=== PATIENT | male | born 1945 | race Caucasian/White ===

== ENCOUNTER 2017-05-25 14:39 | Emergency (ER) | payer OTHER ==
[2017-05-25 14:49] VITALS: TEMP 98; BMI 26.4
[2017-05-25 15:30] LABS: EOSINOPHIL 0.1 % (0-4.5)
--- NOTE | 2017-05-25 15:38 | PDOC ---
History of Present Illness - General History Source: Patient Exam Limitations: No Limitations - History of Present Illness Initial Comments: 05/25/17 15:39 The patient is a 71-year-old male, with a significant past medical history of HTN and diabetes, who presents to the ED after experiencing a near-syncopal episode at a today. The patient reports that he began to feel lightheaded, diaphoretic, cold, and clammy. He denies experiencing any chest pain or palpitations at the time. The episode lasted approximately 20 minutes and resolved after the pt sat down and drank some water. Pt denies experiencing this in the past. He denies any melena. Pt reports having a cardiac stress test 5 years ago with PCP (Dr. Franks). Pt has no current complaints and feels back at baseline. PCP: Dr. Manish Franks <Makeda Overton - Last Filed: 05/25/17 17:00> - General History Source: Patient Exam Limitations: No Limitations <Heidi Shah - Last Filed: 05/25/17 17:42> - General Chief Complaint: Syncope/Near Syncope Stated Complaint: dizziness,confusion and diaphoresis Time Seen by Provider: 05/25/17 14:45 Past History <Makeda Overton - Last Filed: 05/25/17 17:00> - Past Medical History Cancer: Yes (COLON) COPD: No Diabetes: Yes Disorders: Yes HTN: Yes - Surgical History Abdominal Surgery: Yes (colon resections X 2) - Suicide/Smoking/Psychosocial Hx Smoking History: Former smoker Have you smoked in the past 12 months: No Number of Cigarettes Smoked Daily: 20 Information on smoking cessation initiated: No Hx Alcohol Use: No Drug/Substance Use Hx: No Substance Use Type: None <Heidi Shah - Last Filed: 05/25/17 17:42> - Past Medical History Allergies/Adverse Reactions: Allergies Allergy/AdvReac Type Severity Reaction Status Date / Time No Known Allergies Allergy Verified 05/25/17 14:49 Home Medications: Ambulatory Orders Amlodipine Besylate [Norvasc -] 10 mg PO DAILY 04/21/14 Lisinopril [Prinivil -] 40 mg PO DAILY 04/21/14 Mesalamine [Delzicol] 400 mg PO BID 04/21/14 Metformin HCl [Glucophage -] 500 mg PO BID 04/21/14 Glipizide 5 mg PO DAILY 01/30/15 Triamterene/Hydrochlorothiazid [Triamterene-Hctz 37.5-25 mg Cp] 1 each PO DAILY 01/30/15 Finasteride 5 mg PO DAILY 05/25/17 Tamsulosin HCl [Flomax] 0.4 mg PO DAILY 05/25/17 Review of Systems - Review of Systems Able to Perform ROS?: Yes Comments:: 05/25/17 15:40 GENERAL/CONSTITUTIONAL: No fever or chills. No weakness. (+)Cold, diaphoretic, and clammy. HEAD, EYES, EARS, NOSE AND THROAT: No change in vision. No ear pain or discharge. No sore throat. CARDIOVASCULAR: No chest pain or shortness of breath. RESPIRATORY: No cough, wheezing, or hemoptysis. GASTROINTESTINAL: No nausea, vomiting, diarrhea or constipation. GENITOURINARY: No dysuria, frequency, or change in urination. MUSCULOSKELETAL: No joint or muscle swelling or pain. No neck or back pain. SKIN: No rash NEUROLOGIC:(+)Lightheadedness. No headache, vertigo, loss of consciousness, or change in strength/sensation. ENDOCRINE: No increased thirst. No abnormal weight change. HEMATOLOGIC/LYMPHATIC: No anemia, easy bleeding, or history of blood clots. ALLERGIC/IMMUNOLOGIC: No hives or skin allergy. <Makeda Overton - Last Filed: 05/25/17 17:00> *Physical Exam - Vital Signs Last Vital Signs Temp Pulse Resp BP Pulse Ox 98 F 64 18 138/60 98 05/25/17 14:40 05/25/17 14:40 05/25/17 14:40 05/25/17 14:40 05/25/17 14:40 - Physical Exam Comments: 05/25/17 15:40 GENERAL: Awake, alert, and fully oriented, in no acute distress HEAD: No signs of trauma EYES: PERRLA, EOMI, sclera anicteric, conjunctiva clear ENT: Auricles normal inspection, nares patent, oropharynx clear without exudates. Moist mucosa. NECK: Normal ROM, supple, no lymphadenopathy, JVD, or masses LUNGS: Breath sounds equal, clear to auscultation bilaterally. No wheezes, and no crackles HEART: Regular rate and rhythm, normal S1 and S2, no murmurs, rubs or gallops ABDOMEN: Soft, nontender, normoactive bowel sounds. No guarding, no rebound. No masses EXTREMITIES: Warm, well perfused. Normal range of motion, no edema. No clubbing or cyanosis. No cords, erythema, or tenderness NEUROLOGICAL: Alert and oriented, 5/5 strength SKIN: Warm, Dry, normal turgor, no rashes or lesions noted <Makeda Overton - Last Filed: 05/25/17 17:00> - Vital Signs Last Vital Signs Temp Pulse Resp BP Pulse Ox 98 F 64 18 138/60 98 05/25/17 14:40 05/25/17 14:40 05/25/17 14:40 05/25/17 14:40 05/25/17 14:40 <Heidi Shah - Last Filed: 05/25/17 17:42> Heart Score/ECG Review #1 General ECG Interpretation: Sinus Rhythm, Normal Rate (61), Normal Intervals, No acute ischemic changes <Heidi Shah - Last Filed: 05/25/17 17:42> ED Treatment Course - LABORATORY CBC & Chemistry Diagram: 05/25/17 15:01 05/25/17 15:01 <Makeda Overton - Last Filed: 05/25/17 17:00> - LABORATORY CBC & Chemistry Diagram: 05/25/17 15:01 05/25/17 15:01 - RADIOLOGY Radiology Studies Ordered: Category Date Time Status CHEST PA & LAT [RAD] Stat Radiology 05/25/17 14:46 Ordered <Heidi Shah - Last Filed: 05/25/17 17:42> Medical Decision Making - Medical Decision Making 05/25/17 17:01 Dr. Franks was paged and notified via phone service. <Makeda Overton - Last Filed: 05/25/17 17:00> - Medical Decision Making 05/25/17 15:38 71-year-old male with a history of hypertension, diabetes, here today with a near syncopal episode at a . Describes feeling clammy and lightheaded no associated chest pain or palpitations no focal weakness. On exam he is nonfocal with a normal cardiac and lung exam symptoms have resolved differential: Anemia , dysrhythmia, hypoglycemic episode, vasovagal reaction dehydration ACS Plan: CBC, CMP, troponin, EKG, IV hydration glucose was normal chest x-ray. Will discuss with patient regarding possibility of short stay observation to rule out dysrhythmia we'll try to reach patient's primary doctor for follow-up 05/25/17 17:05 CBC is normal troponin is negative chest x-rays unremarkable EKG is normal. Patient is asymptomatic discuss the patient risk and benefit of staving overnight to rule out dysrhythmia at this time would like to leave has follow- up scheduled for 4 days from today with Manish Mora. Will call Dr. Hammond 's [facility] office to leave a message regarding the patient's care today and follow -up instructions. awaiting call back Patient encouraged to return for any recurrent episodes of near syncope palpitations chest pain or any other concerns 05/25/17 17:41 <Heidi Shah - Last Filed: 05/25/17 17:42> *DC/Admit/Observation/Transfer - Attestations Scribe Attestion: 05/25/17 15:42 Documentation prepared by Makeda Overton, acting as director medical economics for Heidi Shah MD. <Makeda Overton - Last Filed: 05/25/17 17:00> <Heidi Shah - Last Filed: 05/25/17 17:42> Diagnosis at time of Disposition: Near syncope - Discharge Dispostion Condition at time of disposition: Improved - Referrals Referrals: Manish Franks [Primary Care Provider] - - Patient Instructions Printed Discharge Instructions: DI for Syncope in Adults (Fainting) Additional Instructions: Follow-up with Dr. FRANKS. Call to schedule. Drink plenty of liquids, return to the emergency room for any palpitations, recurrent symptoms of feeling lightheaded, palpitations, chest pain or any concerns - Post Discharge Activity
[2017-05-25 15:54] LABS: BASOPHIL 0.3 % (0-2.0); MCHC 32.8 g/dl (32.0-35.9); MEAN CELL VOLUME 82.3 fl (80-96); MEAN PLT VOLUME 8.1 fl (7.5-11.1); NEUTROPHILS 89.5 % (42.8-82.8); PLATELET COUNT 250 K/MM3 (134-434); RDW 13.1 % (11.9-15.9); WHITE BLOOD COUNT 10.6 K/mm3 (4.0-10.8)
[2017-05-25 16:09] LABS: ALBUMIN 4.2 g/dl (3.5-5.0); ALK PHOS 87 U/L (32-92); ANION GAP 9 (8-16); BILIRUBIN,TOTAL 1.4 mg/dl (0.2-1.0); CALCIUM 9.9 mg/dl (8.4-10.2); CO2 24 mmol/L (22-28); CREATININE 1.2 mg/dl (0.6-1.3); GLUCOSE,RANDOM 104 mg/dl (74-106); SGOT/AST 24 U/L (10-42); SGPT/ALT 22 U/L (10-40); TOT PROT 6.9 g/dl (6.4-8.3)
[2017-05-25] MEDS ORDERED: methylPREDNISolone NA SUCC 125 MG/2 ML VIAL IVPB ONE (17:11)
[2017-05-25 17:57] VITALS: BP 142/64; PULSE 68
--- NOTE | 2017-05-26 14:02 | EKG ---
Test Reason : Blood Pressure : / mmHG Vent. Rate : 062 BPM Atrial Rate : 062 BPM P-R Int : 154 ms QRS Dur : 102 ms QT Int : 424 ms P-R-T Axes : 054 042 051 degrees QTc Int : 430 ms POOR DATA QUALITY, INTERPRETATION MAY BE ADVERSELY AFFECTED SINUS RHYTHM WITH OCCASIONAL PREMATURE VENTRICULAR COMPLEXES OTHERWISE NORMAL ECG NO PREVIOUS ECGS AVAILABLE Confirmed by MONIKA POWELL MD ([id number]) on 05/26/2017 2:02:39 PM Referred By: FABIANA Confirmed By:MONIKA POWELL MD
== END 2017-05-25 17:50 | disposition home or self-care (01) ==
LOC: FER 14:39
DX: R55 Syncope and collapse (principal); E11.9 Type 2 diabetes mellitus without complications; I10 Essential (primary) hypertension; Z85.038 Personal history of other malignant neoplasm of large intestine
CPT/HCPCS: 36415; 71020-TC; 80053; 84484; 85025; 93005; 99283-25

== ENCOUNTER 2021-04-22 20:59 | Emergency (ER) | payer OTHER ==
[2021-04-22] MEDS ORDERED: CIPROFLOXACIN 250 MG TABLET (RESTRICTED TO ID) PO ONE (21:22)
[2021-04-22] MEDS: CIPROFLOXACIN 500 MG TABLET (RESTRICTED TO ID) PO ONE ×2 (21:22→22:21)
[2021-04-22 21:37] VITALS: BP 172/72; PULSE 60; TEMP 97.7; BMI 18.6
== END 2021-04-22 23:22 | disposition home or self-care (01) ==
LOC: FER 20:59
DX: R33.9 Retention of urine, unspecified (principal)
CPT/HCPCS: 81003; 81015; 87086; 87186; 99284-25

== ENCOUNTER 2021-04-29 20:45 | Emergency (ER) | payer OTHER ==
[2021-04-29 20:59] VITALS: BP 150/79; PULSE 66; TEMP 98.7; BMI 18.6
== END 2021-04-29 21:50 | disposition home or self-care (01) ==
LOC: FER 20:45
DX: R33.9 Retention of urine, unspecified (principal)
CPT/HCPCS: 81003; 81015; 87086; 99283-25